=== PATIENT | male | born 1940 | race Caucasian/White ===

== ENCOUNTER 2018-12-30 17:41 | Inpatient (IN) | payer MEDICARE, OTHER ==
[~2018-12-30 17:41] MED LIST: Heparin 10,000 UNITS/ 10 ML VIAL ONE
--- NOTE | 2018-12-30 18:45 | RAD ---
PORTABLE CHEST: 12/30/18 HISTORY: Cough and shortness of breath. Heart size is within normal limits. There are atherosclerotic changes of the aorta. The lungs are chiquita ar of infiltrates. Old right rib fractures are noted. IMPRESSION: No active intrathoracic disease. POS: [facility]
[2018-12-30 18:51] LABS: #Eosinphils 0.2 thou/uL (0.0-0.7); #Lymphocytes 1.3 thou/uL (1.20-3.40); #Monocytes 0.8 thou/uL (0.11-0.59); #Neutrophils 4.7 thou/uL (1.40-6.50); %Basophils 0.2 % (0.0-1.0); %Eosinophils 2.4 % (0.0-10.0); %Lymphocytes 18.7 % (21.0-51.0); %Monocytes 11.6 % (0.0-10.0); Hemoglobin 9.6 g/dL (14.0-18.0); Mean Corpuscular Hemoglobin 32.4 pg (27.0-31.0); Mean Corpuscular Volume 98.2 fL (78.0-98.0); Mean Platelet Volume 7.2 fL (7.4-10.4); Platelet Count 186 thou/uL (130-400); RBC Distribution Width 12.4 % (11.5-14.5); Red Blood Cell (RBC) Count 2.97 mill/uL (4.70-6.10)
[2018-12-30 18:59] LABS: INR-International Normal Ratio 1.1; Prothrombin Time 14.3 SEC (12.0-14.7)
[2018-12-30 19:18] LABS: ALT (SGPT) 23 U/L (8-55); AST (SGOT) 18 U/L (5-34); Albumin 3.7 g/dL (3.4-4.8); Alkaline Phosphatase 66 U/L (40-110); Anion Gap 15 mmol/L (10-20); BUN (Urea Nitrogen) 71 mg/dL (8.4-25.7); Bilirubin, Total 0.4 mg/dL (0.2-1.2); Calc. Creatinine Clearance 0 mL/min (70-130); Carbon Dioxide 20 mmol/L (23-31); Chloride 111 mmol/L (98-107); Estimated GFR-MDRD 11; Globulin 3.1 g/dL (2.4-3.5); Glucose 121 mg/dL (83-110); Lipase 61 U/L (8-78); Magnesium 2.3 mg/dL (1.6-2.6); Protein, Total 6.8 g/dL (5.8-8.1); Sodium 140 mmol/L (136-145)
[2018-12-30 19:25] LABS: Bacteria/HPF None Seen HPF (None Seen); Bilirubin Negative (Negative); Blood, Urine Negative (Negative); Clarity Clear (Clear); Glucose, Urine (Dipstick) Normal (Negative); Leukocyte Negative Leu/uL (Negative); Nitrite Negative (Negative); Protein, Urine (Dipstick) 70 mg/dL (Neg-Trace); RBC/HPF 0-3 HPF (0-3); Squamous Epithelial 0-3 HPF (0-3); Urobilinogen Normal mg/dL (Less than 2); WBC/HPF 0-3 HPF (0-3)
[2018-12-30] MEDS ORDERED: Calcium Chloride 1 GM/10 ML Abboject SYRINGE ONE (20:23)
[2018-12-30] MEDS ORDERED: Sodium Bicarb 50 MEQ/50 ML VIAL ONE (20:23)
[2018-12-30] MEDS ORDERED: Insulin Regular 300 UNITS/3 ML VIAL ONE (20:23)
[2018-12-30] MEDS ORDERED: Dextrose 50% Abboject 50 ML SYRINGE ONE (20:23)
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
[2018-12-30 21:59] LABS: Troponin I 0.024 ng/mL (< 0.028)
[2018-12-30] MEDS ORDERED: Acetaminophen 325 MG TAB PO PRN (22:58)
[2018-12-31 00:44] LABS: Anion Gap 14 mmol/L (10-20); BUN (Urea Nitrogen) 66 mg/dL (8.4-25.7); Calc. Creatinine Clearance 0 mL/min (70-130); Calcium 8.8 mg/dL (7.8-10.44); Carbon Dioxide 19 mmol/L (23-31); Chloride 113 mmol/L (98-107); Estimated GFR-MDRD 13; Glucose 138 mg/dL (83-110); Potassium 5.3 mmol/L (3.5-5.1); Sodium 141 mmol/L (136-145)
[2018-12-31 00:46] LABS: CK (CPK) 14 U/L (30-200); Iron 32 ug/dL (65-175); Iron Binding Capacity, Total 165 mcg/dL (261-462); Phosphorus 4.1 mg/dL (2.3-4.7)
[2018-12-31 00:55] LABS: Troponin I Less than 0.010 ng/mL (< 0.028)
[2018-12-31 01:17] LABS: Ferritin 171.45 ng/mL (22-322)
[2018-12-31 01:50] LABS: Creatinine, Urine 103.82 mg/dL (63-166)
[2018-12-31 06:17] LABS: #Eosinphils 0.2 thou/uL (0.0-0.7); #Lymphocytes 1.4 thou/uL (1.20-3.40); #Monocytes 0.6 thou/uL (0.11-0.59); #Neutrophils 3.7 thou/uL (1.40-6.50); %Basophils 0.3 % (0.0-1.0); %Eosinophils 2.8 % (0.0-10.0); %Lymphocytes 23.5 % (21.0-51.0); %Monocytes 10.1 % (0.0-10.0); %Neutrophils 63.4 % (42.0-75.0); Hemoglobin 8.8 g/dL (14.0-18.0); Mean Corpuscular Hemoglobin 32.6 pg (27.0-31.0); Mean Corpuscular Volume 98.9 fL (78.0-98.0); Mean Platelet Volume 7.1 fL (7.4-10.4); Platelet Count 169 thou/uL (130-400); RBC Distribution Width 12.2 % (11.5-14.5); White Blood Cell (WBC) Count 5.8 thou/uL (4.8-10.8)
[2018-12-31 06:37] LABS: Anion Gap 15 mmol/L (10-20); BUN (Urea Nitrogen) 59 mg/dL (8.4-25.7); Calc. Creatinine Clearance 17 mL/min (70-130); Calcium 8.4 mg/dL (7.8-10.44); Carbon Dioxide 17 mmol/L (23-31); Chloride 114 mmol/L (98-107); Estimated GFR-MDRD 13; Glucose 99 mg/dL (83-110); Potassium 5.5 mmol/L (3.5-5.1); Sodium 140 mmol/L (136-145)
--- NOTE | 2018-12-31 07:03 | PDOC.FM ---
- Subjective Subjective: Seen at bedside this morning resting comfortably after being admitted for hyperkalemia yesterday. Patient denies any new symptoms. He has no concerns at this time. There were no acute events over night. - Objective MAR Reviewed: Yes Vital Signs & Weight: Vital Signs (12 hours) Temp Pulse Resp BP Pulse Ox 12/31/18 06:02 97.9 F 66 18 132/63 93 L 12/30/18 22:00 95 12/30/18 21:50 97.8 F 95 20 141/67 H 95 Weight Weight 84.822 kg I&O: 12/30/18 12/31/18 01/01/19 06:59 06:59 05:59 Intake Total 600 Output Total 700 Balance -100 Result Diagrams: 12/31/18 06:10 12/31/18 06:10 EKG Reviewed by me: Yes Radiology Reviewed by me: Yes Phys Exam - Physical Examination Constitutional: NAD HEENT: PERRLA, moist MMs Respiratory: clear to auscultation bilateral Cardiovascular: RRR, no significant murmur Gastrointestinal: soft, non-tender, no distention Musculoskeletal: no edema, pulses present Neurological: moves all 4 limbs Psychiatric: A&O x 3 Skin: no rash Dx/Plan (1) Acute on chronic renal failure Code(s): N17.9 - ACUTE KIDNEY FAILURE, UNSPECIFIED; N18.9 - CHRONIC KIDNEY DISEASE, UNSPECIFIED Status: Acute Qualifiers: Chronic kidney disease stage: stage 5, not on chronic dialysis (2) HLD (hyperlipidemia) Code(s): E78.5 - HYPERLIPIDEMIA, UNSPECIFIED Status: Acute (3) HTN (hypertension) Code(s): I10 - ESSENTIAL (PRIMARY) HYPERTENSION Status: Acute (4) Hyperkalemia Code(s): E87.5 - HYPERKALEMIA Status: Acute (5) Megaloblastic anemia Code(s): D53.1 - OTHER MEGALOBLASTIC ANEMIAS, NOT ELSEWHERE CLASSIFIED Status : Acute (6) Peripheral vascular disease Code(s): I73.9 - PERIPHERAL VASCULAR DISEASE, UNSPECIFIED Status: Acute - Plan Plan: Acute on Chronic Renal Failure - Currently CKD Stage 5 - Known renal disease of unknown etiology per pt - FeNa 1.3, c/w intrinsic renal pathology - Dr. Ortiz, nephrology, consulted by ED, agreed with admission w/ plan for boyce cath placement and hemodialysis today Hyperkalemia - K+: 6.0 initially in ED, 5.5 today - Trend BMP q6hr, will add Kayexalate if there is an upward trend before HD Macrocytic anemia - Most likely related to CKD. Continue to monitor. Asymptomatic at this time - Recent dark stools but negative hemoccult HTN, HLD, PVD - Resume home rx regimen Diet: HH, start renal high protein when HD starts VTE: SCD Code: Full Dispo: Continue tele inpt for fluids, electrolyte monitoring, hemodialysis. Expected LOS > 48hr. Addendum - Attending - Attending Attestation Date/Time: 12/31/18 2386 I personally evaluated the patient and discussed the management with Dr. Plummer I agree with the History, Examination, Assessment and Plan documented above with any addition or exceptions noted below. Potassium level improved . consider kaxeylate prn. For dialysis cath placement continue monitor lytes, anemia most likely related to chronic disease. Renal US expectant management consultation with Nephrology Dr Ortiz.
[2018-12-31] MEDS ORDERED: FLU VACC TS2019-20(65YR UP)/PF 180 MCG/0.5 ML SYRINGE IM ONE (09:00)
[2018-12-31] MEDS ORDERED: traMADol HCl 50 MG TAB PO PRN (09:10)
[2018-12-31] MEDS: Vitamin E 400 UNITS CAP PO SCH (09:18)
[2018-12-31] MEDS: NIFEdipine XL 60 MG TAB PO SCH ×2 (09:22→20:46)
[2018-12-31] MEDS: Carvedilol 6.25 MG TAB PO SCH ×2 (09:22→20:45)
[2018-12-31] MEDS: Ferrous Sulfate 325 MG TAB PO SCH (09:22)
[2018-12-31] MEDS: Clopidogrel Bisulfate 75 MG TAB PO SCH (09:22)
[2018-12-31] MEDS: Multivit, Therapeutic 1 TAB PO SCH (09:22)
[2018-12-31] MEDS: Aspirin 81 mg Enteric Coated Tablet PO SCH (09:23)
[2018-12-31 10:25] LABS: HIV (1/2) Antibody/Antigen Non-Reactive (NonReactive); HIV 1/2 INDEX 0.08 S/CO (<1.00); Hep C IgG Ab Non-Reactive (NonReactive); Hep C Index 0.19 S/CO (0-0.79); PSA-Asymptomatic (SCREENING) 2.46 ng/mL (0-4.0)
[2018-12-31 11:23] LABS: HBSAg Index 0.18 S/CO (0-0.99); Hep B Surf Ag Non-Reactive S/CO (NonReactive); Hep C IgG Ab Non-Reactive (NonReactive); Hep C Index 0.18 S/CO (0-0.79)
[2018-12-31 11:27] LABS: HBSAB Concentration 24.31 mIU/mL; Hep B Core Total Ab Reactive (NonReactive); Hep B Core Total Index 2.56 S/CO (0-0.79); Hep B Surf AB Reactive (NonReactive)
[2018-12-31] MEDS ORDERED: EPOETIN ALFA-EPBX (ESRD) 3,000 UNIT/ML VIAL SC SCH (12:00)
[2018-12-31 13:19] LABS: Anion Gap 14 mmol/L (10-20); BUN (Urea Nitrogen) 58 mg/dL (8.4-25.7); Calc. Creatinine Clearance 18 mL/min (70-130); Calcium 8.6 mg/dL (7.8-10.44); Carbon Dioxide 19 mmol/L (23-31); Chloride 112 mmol/L (98-107); Estimated GFR-MDRD 14; Glucose 100 mg/dL (83-110); Potassium 5.1 mmol/L (3.5-5.1); Sodium 140 mmol/L (136-145)
--- NOTE | 2018-12-31 14:23 | ULT ---
US Carotid Doppler STANDARD History: Transient ischemic attack Comparison: None. Findings: Real-time grayscale, color, and spectral analysis of the extracranial carotid and vertebral arteries was performed. No elevated peak systolic velocities within the internal carotid arteries. Antegrade flow both verteb ral arteries. Impression: No hemodynamically significant stenosis.
--- NOTE | 2018-12-31 14:41 | ULT ---
US Renal Bilateral STANDARD History: Chronic kidney disease. Acute kidney injury. Comparison: None. Findings: Real-time grayscale and color evaluation of the kidneys and urinary bladder was performed. Right kidney measures 11.8 x 6.6 x 7 cm and the left kidney measures 12.9 x 6.5 x 6.9 cm. Multiple bi lateral renal cysts. Prevoid urinary bladder volume is 48 mL. The renal cortices are echogenic. No renal mass, hydronephrosis, or abnormal calcifications. Impression: No evidence for acute obstructive uropathy.
--- NOTE | 2018-12-31 14:43 | ULT ---
ULTRASOUND VESSEL MAPPING DIALYSIS ACCESS: HISTORY: Placement of fistula. COMPARISON: None. FINDINGS: Real-time, osorio scale, color, and spectral analysis of the bilateral upper extremity venous system wa s performed as well as the arterial system. FINDINGS: RIGHT SIDE: Brachial artery 5.1 mm Radial artery 3.7 mm Ulnar artery 2.8 mm CEPHALIC VEIN: Proximal humerus thrombosed Mid humerus thrombosed Distal thrombosed Elbow thrombosed Proximal forearm 1.2 mm Mid 1.3 mm Distal 3.1 mm BASILIC VEIN: Proximal humerus 7.2 mm Mid humerus 5.6 mm Distal 5.3 mm Elbow 7.1 mm Proximal forearm 3.4 mm Mid 2.7 mm Distal 1.6 mm LEFT SIDE: Brachial artery 4.6 mm Radial artery 3.2 mm Ulnar artery 2.5 mm CEPHALIC VEIN: Proximal humerus 5.7 mm Mid humerus 5.8 mm Distal 4.4 mm Elbow 5.7 mm Proximal forearm 2.2 mm Mid 1.8 mm Distal 3.6 mm BASILIC VEIN: Proximal humerus 3.9 mm Mid humerus 4.1 mm Distal 3.3 mm Elbow 5.0 mm Proximal forearm 2.6 mm Mid 2.3 mm Distal 1.6 mm The bilateral internal jugular and subclavian veins are patent. IMPRESSION: 1. Thrombosed right cephalic vein from the shoulder to the antecubital fossa. 2. Vascular size as above. POS: OFF
[2018-12-31] MEDS ORDERED: Tuberculin PPD 0.1 ML VIAL I-DERMAL SCH (18:30)
[2018-12-31 19:23] LABS: Anion Gap 14 mmol/L (10-20); BUN (Urea Nitrogen) 56 mg/dL (8.4-25.7); Calc. Creatinine Clearance 18 mL/min (70-130); Calcium 8.4 mg/dL (7.8-10.44); Carbon Dioxide 18 mmol/L (23-31); Chloride 112 mmol/L (98-107); Estimated GFR-MDRD 14; Glucose 111 mg/dL (83-110); Potassium 5.4 mmol/L (3.5-5.1); Sodium 139 mmol/L (136-145)
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
[2019-01-01 01:10] LABS: Anion Gap 14 mmol/L (10-20); BUN (Urea Nitrogen) 57 mg/dL (8.4-25.7); Calc. Creatinine Clearance 18 mL/min (70-130); Calcium 8.4 mg/dL (7.8-10.44); Carbon Dioxide 19 mmol/L (23-31); Chloride 111 mmol/L (98-107); Estimated GFR-MDRD 14; Glucose 98 mg/dL (83-110); Potassium 5.8 mmol/L (3.5-5.1); Sodium 138 mmol/L (136-145)
--- NOTE | 2019-01-01 07:33 | PDOC.FM ---
- Subjective Subjective: Seen at bedside this morning in no acute distress. Pt refused labs this morning. Last night K continued to trend upward and he was given a dose of kayexalate. No concerns from nursing - Objective Vital Signs & Weight: Vital Signs (12 hours) Temp Pulse Resp BP BP Pulse Ox 01/01/19 05:00 98.3 F 92 16 121/60 92 L 12/31/18 23:18 98.7 F 65 22 H 151/69 H 12/31/18 20:46 58 L 12/31/18 20:45 118/57 L Weight Admit Weight 83.234 kg Weight 85.049 kg I&O: 12/31/18 01/01/19 01/02/19 07:59 06:59 06:59 Intake Total Output Total Balance Result Diagrams: 01/01/19 08:48 01/01/19 08:48 Phys Exam - Physical Examination HEENT: moist MMs Respiratory: clear to auscultation bilateral Cardiovascular: RRR, no significant murmur Gastrointestinal: soft, non-tender, no distention Musculoskeletal: no edema Neurological: non-focal, moves all 4 limbs Psychiatric: A&O x 3 Skin: no rash Dx/Plan (1) Acute on chronic renal failure Code(s): N17.9 - ACUTE KIDNEY FAILURE, UNSPECIFIED; N18.9 - CHRONIC KIDNEY DISEASE, UNSPECIFIED Status: Acute Qualifiers: Chronic kidney disease stage: stage 5, not on chronic dialysis (2) HLD (hyperlipidemia) Code(s): E78.5 - HYPERLIPIDEMIA, UNSPECIFIED Status: Acute (3) HTN (hypertension) Code(s): I10 - ESSENTIAL (PRIMARY) HYPERTENSION Status: Acute (4) Hyperkalemia Code(s): E87.5 - HYPERKALEMIA Status: Acute (5) Megaloblastic anemia Code(s): D53.1 - OTHER MEGALOBLASTIC ANEMIAS, NOT ELSEWHERE CLASSIFIED Status : Acute (6) Peripheral vascular disease Code(s): I73.9 - PERIPHERAL VASCULAR DISEASE, UNSPECIFIED Status: Acute - Plan Plan: Acute on Chronic Renal Failure - Currently CKD Stage 5 - Known renal disease of unknown etiology per pt - FeNa 1.3, c/w intrinsic renal pathology - Dr. Ortiz, nephrology, consulted - Plan for temporary HD access today. Graft to be placed today by gen surg. Hyperkalemia - Secondary to ESRD. Repeat K pending. Macrocytic anemia - Most likely related to CKD. Continue to monitor. Asymptomatic at this time - CBC pending HTN, HLD, PVD - Resume home rx regimen Diet: HH, start renal high protein when HD starts VTE: SCD Code: Full Dispo: Continue tele inpt for fluids, electrolyte monitoring, hemodialysis. Expected LOS > 48hr. Addendum - Attending - Attending Attestation Date/Time: 01/01/19 8006 I personally evaluated the patient and discussed the management with Dr. Plummer I agree with the History, Examination, Assessment and Plan documented above with any addition or exceptions noted below.
[2019-01-01] MEDS: Carvedilol 6.25 MG TAB PO SCH ×2 (09:01→20:26)
[2019-01-01 09:08] LABS: #Eosinphils 0.2 thou/uL (0.0-0.7); #Lymphocytes 1.2 thou/uL (1.20-3.40); #Monocytes 0.5 thou/uL (0.11-0.59); #Neutrophils 3.4 thou/uL (1.40-6.50); %Basophils 0.2 % (0.0-1.0); %Eosinophils 3.1 % (0.0-10.0); %Lymphocytes 22.9 % (21.0-51.0); %Monocytes 9.7 % (0.0-10.0); %Neutrophils 64.2 % (42.0-75.0); Hemoglobin 9.4 g/dL (14.0-18.0); Mean Corpuscular Hemoglobin 32.7 pg (27.0-31.0); Mean Corpuscular Volume 99.1 fL (78.0-98.0); Mean Platelet Volume 7.4 fL (7.4-10.4); Platelet Count 163 thou/uL (130-400); RBC Distribution Width 12.2 % (11.5-14.5); Red Blood Cell (RBC) Count 2.87 mill/uL (4.70-6.10); White Blood Cell (WBC) Count 5.4 thou/uL (4.8-10.8)
[2019-01-01 09:19] LABS: Anion Gap 12 mmol/L (10-20); BUN (Urea Nitrogen) 56 mg/dL (8.4-25.7); Calc. Creatinine Clearance 18 mL/min (70-130); Calcium 8.5 mg/dL (7.8-10.44); Carbon Dioxide 21 mmol/L (23-31); Chloride 114 mmol/L (98-107); Estimated GFR-MDRD 14; Glucose 98 mg/dL (83-110); Potassium 5.3 mmol/L (3.5-5.1); Sodium 142 mmol/L (136-145)
[2019-01-01] MEDS ORDERED: Levofloxacin 500 mg/D5W 100 ml Premix Bag ONE (09:26)
[2019-01-01] MEDS ORDERED: Bupivacaine HCl 0.5%/Epinephrine 1:200,000/PF 30 ml Vial ONE (09:35)
[2019-01-01] MEDS ORDERED: Lidocaine 2% PF 5 ML VIAL ONE (09:35)
[2019-01-01] MEDS ORDERED: Sodium Chloride 0.9% 30 ML ONE (09:35)
[2019-01-01] MEDS ORDERED: Heparin 10,000 UNITS/1 ML VIAL ONE (09:36)
[2019-01-01] MEDS ORDERED: Fentanyl 100 MCG/2 ML VIAL ONE (10:08)
[2019-01-01] MEDS ORDERED: Meperidine HCl/PF 25 MG/ML VIAL SLOW IVP PRN (10:45)
[2019-01-01] MEDS ORDERED: Promethazine HCl 25 MG/ML VIAL SLOW IVP PRN (10:45)
[2019-01-01] MEDS ORDERED: Promethazine HCl 25 MG/ML VIAL IM PRN (10:45)
[2019-01-01] MEDS ORDERED: Acetaminophen 500 MG TAB PO PRN (10:59)
--- NOTE | 2019-01-01 11:24 | PRG ---
DATE OF SERVICE: 01/01/2019 The patient had placement of right and left internal jugular vein central lines, right IJ hemodialysis catheter, left IJ triple-lumen catheter. The patient has iatrogenic thrombosis of his right upper arm cephalic vein due to antecubital IV access in a CKD/ESRD patient. I have asked the patient not to allow anybody to place IVs above his wrist and draw blood above his wrist. His central line is present for IV access in this hospitalization. The patient's left arm should be saved for dialysis access. My office can schedule outpatient left arm fistula as an outpatient as I will be out of town the upcoming week. We can do this as an outpatient in the next 1 to 3 weeks. Job ID: [id number]
--- NOTE | 2019-01-01 11:25 | RAD ---
Exam: Chest one view HISTORY:Line placement Comparison: 12/30/2018 FINDINGS: Lungs: No masses or consolidation. Minimal volume loss is seen at the left lateral lung base. [place] d right-sided vascular catheter is present with tip overlying right atrium. There is a left internal jugular venous catheter with tip overlying the right atrium. Cardiac silhouette:Stable Pulmonary vessels: Normal Pleural Spaces: Clear Pneumothorax: None Osseous abnormalities: Remote right rib deformities. IMPRESSION: Supportive catheters, as above, without postprocedural pneumothorax
[2019-01-01] MEDS: traMADol HCl 50 MG TAB PO PRN (12:30)
[2019-01-01] MEDS: NIFEdipine XL 60 MG TAB PO SCH ×2 (12:32→20:27)
[2019-01-01] MEDS: Multivit, Therapeutic 1 TAB PO SCH (12:32)
[2019-01-01] MEDS: Ferrous Sulfate 325 MG TAB PO SCH (12:32)
[2019-01-01] MEDS: Clopidogrel Bisulfate 75 MG TAB PO SCH (12:32)
[2019-01-01] MEDS: Aspirin 81 mg Enteric Coated Tablet PO SCH (12:32)
[2019-01-01] MEDS: Vitamin E 400 UNITS CAP PO SCH (12:33)
[2019-01-01] MEDS ORDERED: PROPOFOL 200 MG/20 ML VIAL ONE (12:35)
[2019-01-01] MEDS ORDERED: Ondansetron PF 4 MG/2 ML Vial ONE (12:35)
[2019-01-01] MEDS ORDERED: Lidocaine 1% PF 5 ML VIAL ONE (12:35)
[2019-01-01] MEDS ORDERED: ePHEDrine/0.9% NaCl/PF SYRINGE 50 mg/10 ml ONE (12:35)
[2019-01-02] MEDS: traMADol HCl 50 MG TAB PO PRN (00:37)
--- NOTE | 2019-01-02 05:29 | PDOC.FM ---
- Subjective Subjective: Mr. Olivier was resting comfortably in bed at the time of evaluation. He is extremely hard of hearing because of "fluid in his ears", which may have contirbuted to a difficult evaluation. He denied any acute overnight events such as chest pain, shortness of breath or abdominal pain. - Objective Vital Signs & Weight: Vital Signs (12 hours) Temp Pulse Resp BP Pulse Ox 01/02/19 04:00 97.7 F 63 14 123/58 L 92 L 01/01/19 20:20 97.5 F L 63 16 146/65 H 92 L Weight Admit Weight 83.234 kg Weight 85.049 kg I&O: 12/31/18 01/01/19 01/02/19 07:59 06:59 06:59 Intake Total 820 Output Total 760 Balance 60 Result Diagrams: 01/01/19 08:48 01/01/19 08:48 Phys Exam - Physical Examination Constitutional: NAD HEENT: PERRLA, moist MMs, sclera anicteric, oral pharynx no lesions Neck: no nodes, supple, full ROM Respiratory: no wheezing, no rales, no rhonchi, clear to auscultation bilateral Cardiovascular: RRR, no rub 3/6 systolic murmur Gastrointestinal: soft, non-tender, no distention, positive bowel sounds Musculoskeletal: no edema, pulses present Neurological: non-focal Lymphatic: no nodes Psychiatric: normal affect Skin: no rash Dx/Plan - Plan Plan: 1. Acute on Chronic Renal Failure - Currently CKD Stage 5 -Known renal disease of unknown etiology, per patient -FeNa 1.3, c/w intrinsic renal pathology -Renal US: No stenosis -Transthoracic Echo: EF 55-60%, mild Aortic stenosis and Tricuspid regurgitation -Dr. Ortiz (Nephrology): Consulted, currently following -Dr. Arriaga (Surgery): Consulted, currently following - placed Right IJ Tunneled Hemodialysis Catheter and Left IJ Central Line -Plan for hemodialysis later today 2. Hyperkalemia -Likely 2/2 to ESRD -K: 6.0 > 5.3 on 01/02 - will continue to trend -Plan for hemodialysis -Consider adjunct treatment options if K continues to rise or if patient becomes symptomatic 3. Macrocytic anemia -Likely 2/2 to ESRD -MCV: 99.1 -Continue to monitor - patient continues to be asymptomatic -Consider additional etiologies if necessary 4. HTN -BP: 127/59 on 01/02 -Resume home medication regimen 5. HLD -Resume home medication regimen 6. PVD -Resume home medication regimen Code: Full Diet: Renal High Protein Activity: Ad rudy DVT PPx: SCDs Dispo: Patient is currently stable on Telemetry Floor. Continue to trend fluid status and electrolytes. Coordinate as needed for hemodialysis. Expected LOS > 48hr.
--- NOTE | 2019-01-02 09:19 | OP ---
DATE OF PROCEDURE: 01/01/2019 PREOPERATIVE DIAGNOSIS: End-stage renal disease, in need of dialysis access, poor IV access, thrombosed right cephalic vein due to iatrogenic right antecubital IV, IV blood draws, left AC, ultrasound vein mapping suggests left arm vein is good for a Mala or AC fistula. ANESTHESIA: LMA general, local 0.5% Marcaine with epinephrine 30 mL mixed with 2% Xylocaine 10 mL. PROCEDURES PERFORMED: Right IJ cuffed tunneled hemodialysis catheter, AngioDynamics pre-curved. Left IJ central line, triple-lumen. Ultrasound and fluoroscopy used during the procedure. DESCRIPTION OF PROCEDURE: The patient was taken to the operating room, where under LMA general anesthesia, neck and chest were prepared with ChloraPrep and draped in routine fashion. Local anesthetic was infiltrated in the skin and subcutaneous tissue about the operative site. Ultrasound used to cannulate both the right and left internal jugular veins and trocar catheters placed and J-wires threaded. Trocar catheters removed. Skin was enlarged sharply on both sides of the J-wire entry site. Stab incision was made over the right chest. Using the tunneling device, pre-curved AngioDynamics cuffed-tunneled hemodialysis catheter tunneled between two incisions on the right, placing the fabric cuff beneath the catheter exit site and catheter secured with 2 interrupted suture of 3-0 nylon. Smaller and medium size dilators were placed over the J-wire into the internal jugular vein and removed. Dilator and Peel-Away sheath placed over the J-wire into the superior vena cava, and dilator and J-wire were removed. Catheter was placed with the Peel-Away sheath. Peel-Away sheath removed. Platysma was approximated with 4-0 Monocryl, skin with subdermal 4-0 Monocryl, and [place] glue and sterile dressings applied. Each port aspirated blood and flushed with saline solution, heparinized saline solution with 1000 units of heparin per mL indicating volume of the port. Seldinger technique used to place a left IJ triple-lumen catheter, secured with 3-0 nylon suture, and a Biopatch sterile dressing applied. Each port aspirated blood, flushed with saline solution. Fluoroscopy revealed good line placement on both sides. The patient tolerated the procedure well. Job ID: [id number]
[2019-01-02] MEDS: Ferrous Sulfate 325 MG TAB PO SCH (10:56)
[2019-01-02] MEDS: Aspirin 81 mg Enteric Coated Tablet PO SCH (10:56)
[2019-01-02] MEDS: Multivit, Therapeutic 1 TAB PO SCH (10:56)
[2019-01-02] MEDS: NIFEdipine XL 60 MG TAB PO SCH ×2 (10:56→21:24)
[2019-01-02] MEDS: Clopidogrel Bisulfate 75 MG TAB PO SCH (10:56)
[2019-01-02] MEDS: Carvedilol 6.25 MG TAB PO SCH ×2 (10:56→21:23)
[2019-01-02] MEDS: Vitamin E 400 UNITS CAP PO SCH (10:56)
--- NOTE | 2019-01-02 15:13 | PRG ---
DATE OF SERVICE: 01/02/2019 Mr. Olivier is a 78-year-old man, who was admitted with acute on CKD. He has also had some episodes of asymptomatic hyperkalemia. He has been taken 4 dialysis and we will continue to follow with the Nephrology Service. Job ID: [id number]
[2019-01-02 17:09] LABS: IgA - Total IgA (Sendout) 184 mg/dL (61-437); Immunoglobulin - G (Sendout) 723 mg/dL (700-1600); Immunoglobulin - M (Sendout) 96 mg/dL (15-143)
[2019-01-02 18:08] LABS: Albumin 2.7 g/dL (2.9-4.4); Alpha 1 0.2 g/dL (0.0-0.4); Alpha 2 0.9 g/dL (0.4-1.0); Beta 0.7 g/dL (0.7-1.3); Gamma 0.8 g/dL (0.4-1.8); Globulin, Total 2.6 g/dL (2.2-3.9); M-Spike 0.1 g/dL (Not Observed)
--- NOTE | 2019-01-03 05:58 | PDOC.FM ---
- Subjective Subjective: Mr. Olivier was resting comfortably in his hospital bed at the time of evaluation. He stated that he did not have any acute events overnight and specifically denied any chest pain or shortness of breath. He went on to state that he had no difficulty ambulating to and from the bathroom, and felt that he was at his baseline physically. - Objective Vital Signs & Weight: Vital Signs (12 hours) Temp Pulse Resp BP Pulse Ox 01/03/19 04:00 98.1 F 63 20 116/56 L 92 L 01/02/19 20:00 99.1 F 68 16 118/56 L 92 L Weight Admit Weight 83.234 kg Weight 82.69 kg I&O: 01/01/19 01/02/19 01/03/19 06:59 06:59 06:59 Intake Total 820 1610 Output Total 760 1125 Balance 60 485 Result Diagrams: 01/03/19 09:37 01/03/19 09:37 Phys Exam - Physical Examination Constitutional: NAD HEENT: PERRLA, moist MMs, sclera anicteric, oral pharynx no lesions Neck: no nodes, supple, full ROM Respiratory: no wheezing, no rales, clear to auscultation bilateral Mild rhonchi, likely positional Cardiovascular: RRR, no significant murmur, no rub Gastrointestinal: soft, non-tender, no distention Musculoskeletal: no edema Neurological: non-focal, moves all 4 limbs Lymphatic: no nodes Psychiatric: normal affect Skin: no rash Dx/Plan - Plan Plan: 1. Acute on Chronic Renal Failure - Currently CKD Stage 5 -Known renal disease since 1999 of unknown etiology, per patient -FeNa 1.3, c/w intrinsic renal pathology -Cr: 4.11 on 01/02 -Renal US: No obstructive uropathy -Transthoracic Echo: EF 55-60%, mild Aortic stenosis and Tricuspid regurgitation -Dr. Ortiz (Nephrology): Consulted, currently following -Dr. Arriaga (Surgery): Consulted, currently following - placed Right IJ Tunneled Hemodialysis Catheter and Left IJ Central Line -Dialysis on 01/02 for 1H - removed 600 ml 2. Hyperkalemia -Likely 2/2 to ESRD -K: 6.0 > 5.3 on 01/02 - will continue to trend -Plan for multiple hemodialysis treatments during hospital stay -Consider adjunct treatment options if K continues to rise or if patient becomes symptomatic -Reorder CMP 3. Macrocytic anemia -Likely 2/2 to ESRD -MCV: 99.1 -Continue to monitor - patient continues to be asymptomatic -Consider additional etiologies if necessary -Reorder CBC 4. HTN -BP: 116/56 on 01/03 -Continue home medication regimen 5. HLD -Continue home medication regimen 6. PVD -Continue home medication regimen Code: Full Diet: Renal High Protein Activity: Ad rudy DVT PPx: SCDs Dispo: Patient is currently stable on Telemetry Floor. Continue to trend fluid status and electrolytes. Coordinate as needed for hemodialysis. Await Case Management recommendations for hemodialysis bed placement in [place], [place]. Expected LOS > 48hr. Addendum - Attending - Attending Attestation Date/Time: 01/03/19 7837 I personally evaluated the patient and discussed the management with Dr. Osborn I agree with the History, Examination, Assessment and Plan documented above with any addition or exceptions noted below - Patient denies any complaints. Afebrile VSS. A/P: 1) Acute on chronic kidney disease- now starting on HD. Case mgmt consulted to assist with outpt dialysis. Continue current meds. 2) Hyperkalemia- resolved; continue to monitor. 3) HTN- well controlled; continue home meds.
[2019-01-03] MEDS: Ferrous Sulfate 325 MG TAB PO SCH (09:37)
[2019-01-03] MEDS: Carvedilol 6.25 MG TAB PO SCH ×2 (09:37→20:35)
[2019-01-03] MEDS: Aspirin 81 mg Enteric Coated Tablet PO SCH (09:37)
[2019-01-03] MEDS: Clopidogrel Bisulfate 75 MG TAB PO SCH (09:38)
[2019-01-03] MEDS: Vitamin E 400 UNITS CAP PO SCH (09:38)
[2019-01-03] MEDS: NIFEdipine XL 60 MG TAB PO SCH ×2 (09:38→20:36)
[2019-01-03] MEDS: Multivit, Therapeutic 1 TAB PO SCH (09:38)
[2019-01-03 09:56] LABS: #Eosinphils 0.2 thou/uL (0.0-0.7); #Lymphocytes 1.2 thou/uL (1.20-3.40); #Monocytes 0.5 thou/uL (0.11-0.59); #Neutrophils 3.4 thou/uL (1.40-6.50); %Basophils 0.2 % (0.0-1.0); %Eosinophils 3.6 % (0.0-10.0); %Lymphocytes 22.4 % (21.0-51.0); %Monocytes 8.6 % (0.0-10.0); %Neutrophils 65.2 % (42.0-75.0); Hemoglobin 8.3 g/dL (14.0-18.0); Mean Corpuscular Hemoglobin 32.7 pg (27.0-31.0); Platelet Count 157 thou/uL (130-400); RBC Distribution Width 12.1 % (11.5-14.5); Red Blood Cell (RBC) Count 2.53 mill/uL (4.70-6.10); White Blood Cell (WBC) Count 5.2 thou/uL (4.8-10.8)
[2019-01-03 10:18] LABS: ALT (SGPT) 13 U/L (8-55); AST (SGOT) 13 U/L (5-34); Albumin 3.1 g/dL (3.4-4.8); Alkaline Phosphatase 64 U/L (40-110); Anion Gap 12 mmol/L (10-20); BUN (Urea Nitrogen) 42 mg/dL (8.4-25.7); Bilirubin, Total 0.2 mg/dL (0.2-1.2); Calc. Creatinine Clearance 20 mL/min (70-130); Calcium 8.3 mg/dL (7.8-10.44); Carbon Dioxide 25 mmol/L (23-31); Chloride 107 mmol/L (98-107); Estimated GFR-MDRD 17; Globulin 2.5 g/dL (2.4-3.5); Glucose 122 mg/dL (83-110); Potassium 4.7 mmol/L (3.5-5.1); Protein, Total 5.6 g/dL (5.8-8.1); Sodium 139 mmol/L (136-145)
[2019-01-03] MEDS: READ PPD TEST SITE PO SCH (20:35)
--- NOTE | 2019-01-04 06:12 | PDOC.FM ---
- Subjective Subjective: Mr. Olivier was resting comfortably in his hospital bed at the time of evaluation. Effective evaluation continues to be hindered by his poor hearing, but he denied any acute overnight events and stated specifically that he did not have chest pain. - Objective Vital Signs & Weight: Vital Signs (12 hours) Temp Pulse Resp BP Pulse Ox 01/04/19 04:00 97.9 F 64 15 133/61 92 L 01/03/19 20:00 99.1 F 69 16 119/58 L 93 L Weight Admit Weight 83.234 kg Weight 82.962 kg I&O: 01/02/19 01/03/19 01/04/19 06:59 06:59 06:59 Intake Total 820 1610 1210 Output Total 760 1125 1425 Balance 60 485 -215 Result Diagrams: 01/04/19 06:00 01/04/19 06:00 Phys Exam - Physical Examination Constitutional: NAD HEENT: PERRLA, moist MMs, sclera anicteric, oral pharynx no lesions Neck: no JVD, supple, full ROM Respiratory: no wheezing, no rales, no rhonchi, clear to auscultation bilateral Cardiovascular: RRR, no significant murmur, no rub +2 pulses at Radial Arteries, Doralis Pedis Arteries Gastrointestinal: soft, non-tender, no distention Musculoskeletal: no edema, pulses present Neurological: non-focal, moves all 4 limbs Psychiatric: normal affect Skin: no rash Dx/Plan - Plan Plan: 1. Acute on Chronic Renal Failure - Currently CKD Stage 5 -Known renal disease since 1999 of unknown etiology, per patient -FeNa 1.3, c/w intrinsic renal pathology -Cr: 3.6 on 01/04 - down from 4.24 -Renal US: No obstructive uropathy -Transthoracic Echo: EF 55-60%, mild Aortic stenosis and Tricuspid regurgitation -Dr. Ortiz (Nephrology): Consulted, currently following -Dr. Arriaga (Surgery): Consulted, currently following - placed Right IJ Tunneled Hemodialysis Catheter and Left IJ Central Line -Dialysis on 01/02 for 1H - removed 600 ml -Plan for dialysis later this AM 2. Hyperkalemia -Likely 2/2 to ESRD -K: 6.0 > 4.7 on 01/03 - will continue to trend -Plan for multiple hemodialysis treatments during hospital stay -Consider adjunct treatment options if K continues to rise or if patient becomes symptomatic 3. Macrocytic anemia -Likely 2/2 to ESRD -MCV: 99.1 -Continue to monitor - patient continues to be asymptomatic -Consider additional etiologies if necessary 4. HTN -BP: 120/57 on 01/04 -Continue home medication regimen 5. HLD -Continue home medication regimen 6. PVD -Continue home medication regimen Code: Full Diet: Renal High Protein Activity: Ad rudy DVT PPx: SCDs Dispo: Patient is currently stable on Telemetry Floor. Continue to trend fluid status and electrolytes. Coordinate with Nephrology as needed for hemodialysis. Await Case Management recommendations for hemodialysis bed placement in [place], [place]. Expected LOS > 48hr. Addendum - Attending - Attending Attestation Date/Time: 01/04/192120 I personally evaluated the patient and discussed the management with Dr. Osborn I agree with the History, Examination, Assessment and Plan documented above with any addition or exceptions noted below - Patient denies any complaints. Afebrile VSS. A/P: 1) ESRD- started on HD and tolerating well. Awaiting outpatient chair for dialysis. 2) Anemia- stable.
[2019-01-04 07:24] LABS: Hemoglobin 8.3 g/dL (14.0-18.0); Mean Corpuscular HGB CONC 32.9 g/dL (32.0-36.0); Mean Corpuscular Hemoglobin 32.4 pg (27.0-31.0); Mean Corpuscular Volume 98.7 fL (78.0-98.0); Mean Platelet Volume 6.9 fL (7.4-10.4); Platelet Count 161 thou/uL (130-400); RBC Distribution Width 12.2 % (11.5-14.5); Red Blood Cell (RBC) Count 2.54 mill/uL (4.70-6.10); White Blood Cell (WBC) Count 5.5 thou/uL (4.8-10.8)
[2019-01-04 08:28] LABS: ALT (SGPT) 13 U/L (8-55); AST (SGOT) 15 U/L (5-34); Albumin 3.1 g/dL (3.4-4.8); Alkaline Phosphatase 63 U/L (40-110); Anion Gap 12 mmol/L (10-20); BUN (Urea Nitrogen) 43 mg/dL (8.4-25.7); Bilirubin, Total 0.2 mg/dL (0.2-1.2); Calc. Creatinine Clearance 20 mL/min (70-130); Calcium 8.3 mg/dL (7.8-10.44); Carbon Dioxide 24 mmol/L (23-31); Chloride 109 mmol/L (98-107); Estimated GFR-MDRD 17; Globulin 2.5 g/dL (2.4-3.5); Glucose 95 mg/dL (83-110); Potassium 4.7 mmol/L (3.5-5.1); Protein, Total 5.6 g/dL (5.8-8.1); Sodium 140 mmol/L (136-145)
[2019-01-04] MEDS: Clopidogrel Bisulfate 75 MG TAB PO SCH (08:36)
[2019-01-04] MEDS: Ferrous Sulfate 325 MG TAB PO SCH (08:36)
[2019-01-04] MEDS: Carvedilol 6.25 MG TAB PO SCH ×2 (08:36→20:53)
[2019-01-04] MEDS: Multivit, Therapeutic 1 TAB PO SCH (08:36)
[2019-01-04] MEDS: NIFEdipine XL 60 MG TAB PO SCH ×2 (08:37→20:53)
[2019-01-04] MEDS: Aspirin 81 mg Enteric Coated Tablet PO SCH (08:44)
[2019-01-04] MEDS ORDERED: Heparin 10,000 UNITS/ 10 ML VIAL ONE (11:11)
[2019-01-04] MEDS: Vitamin E 400 UNITS CAP PO SCH (11:54)
[2019-01-05 05:57] LABS: Hemoglobin 8.3 g/dL (14.0-18.0)
[2019-01-05 06:04] LABS: Anion Gap 15 mmol/L (10-20); BUN (Urea Nitrogen) 33 mg/dL (8.4-25.7); Calc. Creatinine Clearance 24 mL/min (70-130); Calcium 8.1 mg/dL (7.8-10.44); Carbon Dioxide 25 mmol/L (23-31); Chloride 106 mmol/L (98-107); Estimated GFR-MDRD 21; Glucose 100 mg/dL (83-110); Potassium 4.6 mmol/L (3.5-5.1); Sodium 141 mmol/L (136-145)
--- NOTE | 2019-01-05 06:16 | PDOC.FM ---
- Subjective Subjective: Mr. Olivier was resting comfortably in his hospital bed at the time of evaluation. He denied any acute overnight events, and felt relieved that he had finally had a bowel movement. He stated that he had spoken with Dr. Ortiz, who told him that he had found a dialysis bed for him in [place], [place]. - Objective Vital Signs & Weight: Vital Signs (12 hours) Temp Pulse Resp BP BP BP Pulse Ox 01/05/19 04:00 98.1 F 65 20 126/58 L 94 L 01/04/19 20:53 70 109/53 L 01/04/19 19:23 98.8 F 70 16 109/53 L 93 L Weight Admit Weight 83.234 kg Weight 82.5 kg I&O: 01/03/19 01/04/19 01/05/19 06:59 06:59 06:59 Intake Total 1610 1210 960 Output Total 1125 1425 1339 Balance 157 -149 -158 Result Diagrams: 01/05/19 05:20 01/05/19 05:20 Phys Exam - Physical Examination Constitutional: NAD HEENT: moist MMs, sclera anicteric, oral pharynx no lesions Neck: supple, full ROM Respiratory: no wheezing, no rales, no rhonchi, clear to auscultation bilateral Cardiovascular: RRR, no significant murmur, no rub Gastrointestinal: soft, non-tender, no distention, positive bowel sounds Musculoskeletal: no edema, pulses present Neurological: non-focal, moves all 4 limbs Psychiatric: normal affect Skin: no rash Dx/Plan - Plan Plan: 1. Acute on Chronic Renal Failure - Currently CKD Stage 5 -Known renal disease since 1999 of unknown etiology, per patient -FeNa 1.3, c/w intrinsic renal pathology -Cr: 2.98 on 01/05 - down from 4.24 -Renal US: No obstructive uropathy -Transthoracic Echo: EF 55-60%, mild Aortic stenosis and Tricuspid regurgitation -Dr. Ortiz (Nephrology): Consulted, currently following -Dr. Arriaga (Surgery): Consulted, currently following - placed Right IJ Tunneled Hemodialysis Catheter and Left IJ Central Line -Dialysis on 01/02 for 1H - removed 600 ml UF -Dilaysis on 01/04 for 1H - removed 839 ml UF -Per patient, Dr. Ortiz / ROMELIA are currently coordinating for placement at [facility] in [place], [place] 2. Hyperkalemia -Likely 2/2 to ESRD -K: 6.0 > 4.6 on 01/05 - will continue to trend -Plan for multiple hemodialysis treatments during hospital stay -Adjunct treatment options for hyperkalemia appear unnecessary at this time 3. Macrocytic anemia -Likely 2/2 to ESRD -MCV: 99.1 -Continue to monitor - patient continues to be asymptomatic -Consider additional etiologies if necessary 4. HTN -BP: 126/58 on 01/04 -Continue home medication regimen 5. HLD -Continue home medication regimen 6. PVD -Continue home medication regimen Code: Full Diet: Renal High Protein Activity: Ad rudy DVT PPx: SCDs Dispo: Patient is currently stable on Telemetry Floor. Continue to trend fluid status and electrolytes. Coordinate with Nephrology as needed for hemodialysis. Await Case Management recommendations for hemodialysis bed placement in [place], [place]. Expected LOS < 48hr. Addendum - Attending - Attending Attestation Date/Time: 01/05/19 1141 I personally evaluated the patient and discussed the management with Dr. Osborn I agree with the History, Examination, Assessment and Plan documented above with any addition or exceptions noted below - Patient without complaints. Afebrile VSS. A/P: 1) ESRD on HD- continue maintenance HD while hospitalized. Awaiting arrangements for outpatient dialysis. 2) Anemia- stable.
[2019-01-05] MEDS: Vitamin E 400 UNITS CAP PO SCH (08:54)
[2019-01-05] MEDS: Aspirin 81 mg Enteric Coated Tablet PO SCH (08:54)
[2019-01-05] MEDS: Carvedilol 6.25 MG TAB PO SCH (08:54)
[2019-01-05] MEDS: Multivit, Therapeutic 1 TAB PO SCH (08:55)
[2019-01-05] MEDS: NIFEdipine XL 60 MG TAB PO SCH (08:55)
[2019-01-05] MEDS: Clopidogrel Bisulfate 75 MG TAB PO SCH (08:55)
[2019-01-05] MEDS: Ferrous Sulfate 325 MG TAB PO SCH (08:55)
[2019-01-05 13:18] VITALS: BMI 25.3
[2019-01-05 16:07] VITALS: BP 130/61; TEMP 98.4
--- NOTE | 2019-01-06 05:40 | DIS ---
DATE OF ADMISSION: 12/30/2018 DATE OF DISCHARGE: 01/05/2019 RESIDENT: Caleb Osborn MD. ADMITTING ATTENDING: Yahir Clemens MD. DISCHARGE ATTENDING: Lucita Wynn MD. CONSULTS: 1. Dr. Ryder Arriaga, Surgery. 2. Dr. Ortiz, nephrology. PROCEDURES: Chest x-ray revealing no acute findings, renal ultrasound revealing no evidence for acute obstructive uropathy, carotid Doppler ultrasound revealing no hemodynamically significant stenosis, chest x-ray confirming internal jugular venous catheter placement as well as right-sided venous catheter placement. PRIMARY DIAGNOSIS: End-stage renal disease complicated by hyperkalemia. SECONDARY DIAGNOSES: Peripheral vascular disease, hyperlipidemia, hypertension, megaloblastic anemia, chronic hearing loss DISCHARGE MEDICATIONS: None. DISCONTINUED MEDICATIONS: 1. Acetaminophen 1000 mg p.o. q.6 hours. 2. Aspirin 81 mg p.o. daily. 3. Carvedilol 12.5 mg p.o. b.i.d. 4. Clopidogrel 75 mg p.o. daily. 5. Epoetin korey 6000 units q.7 days. 6. Ferrous sulfate 325 mg p.o. daily. 7. Multivitamin 1 tab daily. 8. Nifedipine 60 mg p.o. b.i.d. 9. Tramadol 50 mg p.o. q.12 for breakthrough. 10. Tramadol 50 mg p.o. q.4 hours p.r.n. 11. Vitamin E 400 units p.o. daily. HISTORY OF PRESENT ILLNESS/HOSPITAL COURSE: Mr. Olivier is a 78-year-old male who presented to the emergency department with complaints of generalized weakness and weight loss. He stated over the past month that he lost approximately 30 pounds secondary to decreased appetite over this time. He also stated that he noticed increasing generalized weakness to the point that he could not ambulate at his baseline. The patient noted a history of chronic kidney disease and is followed locally by Dr. Ortiz. He denies knowledge of the etiology of the stage or type of his kidney disease, but know that his GFR is "as low as 17". The patient notes a history of diabetes, but denies knowledge of the cause or whether he continues to have this. Patient notes history of peripheral vascular disease with stenting and is unsure of whether the stent was in his heart or his legs. The patient notes 3 days of dark stools starting 6 days ago. The patient was concerned about gastrointestinal bleeding. However, he notes that he started taking iron supplements 1 week ago. Initial ED workup was significant only for hyperkalemia and a creatinine of 4.99. The patient denies recent dehydration and decreased urine output. He was treated for his hyperkalemia in the ED and scheduled for q.2 days dialysis. He was followed by Dr. Ryder Arriaga, surgery who assisted with the placement of venous catheter necessary for dialysis as well as a central line placement necessary for medication administration. He was also followed by Dr. Ortiz, his life guard, whom he had seen previously on an outpatient status. His hospital stay was uncomplicated and as he continued to receive dialysis treatments, his creatinine continued to decline as did his hyperkalemia, both of which had resolved by the time of discharge. He was scheduled to have a dialysis bed at [facility] in [place], [place] prior to discharge. His vital signs were unremarkable throughout the duration of his hospital stay, with a temperature of 98.4, pulse of 68, respiratory rate of 18, O2 saturation of 93% on room air, blood pressure was measured at discharge to be 130/61. LABORATORY DATA: Lab values were measured at discharge as having a white blood cell count of 5.5, hemoglobin 8.3, hematocrit 25.6, platelet count 161. Coagulation panel revealed a PT of 14.3, APTT of 34, INR of 1.1. Chem panel revealed a discharge sodium of 141, potassium 4.6, chloride 106, carbon dioxide 25, BUN 33, creatinine 2.98, glucose of 100, calcium 8.1, total bilirubin 0.2, AST 15, ALT 13, alkaline phosphatase 63. Troponins were negative x3. TSH was measured to be 1.39. DISPOSITION: Stable. DISCHARGE INSTRUCTIONS: Location: Home. Diet: Renal diet. Activity: As tolerated. Followup: The patient was encouraged to follow up at [facility] in [place], [place] per the schedule that was established prior to discharge. He was also encouraged to follow up with his primary care physician within 14 days as well as Dr. Ryder Arriaga, (Surgery) within 1-3 weeks for placement of an AV fistula. The patient improved greatly during his time at the hospital and was overall pleased with the quality of care. Job ID: [id number] [facility]
== END 2019-01-05 18:48 | disposition home or self-care (01) | DRG 674 ==
LOC: ERS 17:41 → 2NO 21:50
PROVIDERS: ADMIT Family Medicine; ATTEND Family Medicine
PROC: 0JH63XZ Insertion of Tunneled Vascular Access Device into Chest Subcutaneous Tissue and Fascia, Percutaneous Approach (ICD-10-PCS; principal; 2019-01-01)
PROC: 02H633Z Insertion of Infusion Device into Right Atrium, Percutaneous Approach (ICD-10-PCS; 2019-01-01)
PROC: B518ZZA Fluoroscopy of Superior Vena Cava, Guidance (ICD-10-PCS; 2019-01-01)
PROC: 5A1D70Z Performance of Urinary Filtration, Intermittent, Less than 6 Hours Per Day (ICD-10-PCS; 2019-01-02)
DX: N17.9 Acute kidney failure, unspecified (principal); T82.868A Thrombosis due to vascular prosthetic devices, implants and grafts, initial encounter; I12.0 Hypertensive chronic kidney disease with stage 5 chronic kidney disease or end stage renal disease; N18.6 End stage renal disease; E11.22 Type 2 diabetes mellitus with diabetic chronic kidney disease; E11.51 Type 2 diabetes mellitus with diabetic peripheral angiopathy without gangrene; E78.5 Hyperlipidemia, unspecified; H91.90 Unspecified hearing loss, unspecified ear; D53.1 Other megaloblastic anemias, not elsewhere classified; E87.5 Hyperkalemia; I08.2 Rheumatic disorders of both aortic and tricuspid valves; Y84.8 Other medical procedures as the cause of abnormal reaction of the patient, or of later complication, without mention of misadventure at the time of the procedure; Z99.2 Dependence on renal dialysis; Z79.899 Other long term (current) drug therapy; Z79.82 Long term (current) use of aspirin; Z79.02 Long term (current) use of antithrombotics/antiplatelets; Z28.21 Immunization not carried out because of patient refusal
CPT/HCPCS: 36415; 71045; 76770; 80048; 80053; 81003; 81015; 82274; 82306; 82550; 82570; 82607; 82728; 82746; 83540; 83550; 83690; 83735; 83880; 84100; 84165; 84300; 84443; 84484; 85014; 85018; 85025; 85027; 85610; 85730; 86334; 86580; 86704; 86706; 86803; 87086; 87340; 87389; 87804; 90935; 93005; 93306; 93880; 93970; 96361; 96365; 96375; C1752; C1769; G0103; G0257; G0365; J0670; J1644; J1815; J1956; J2001; J2405; J2704; J3010; Q5105